=== PATIENT | female | born 1985 | race Asian ===

== ENCOUNTER → 2020-01-02 | Outpatient (CLI) | payer SELFPAY ==
[~2020-01-02] MED LIST: DOCU-109 PO; OXYC1TAB15 PO
== END | disposition home or self-care (01) ==
LOC: LAB 14:33
PROVIDERS: ATTEND Obstetrics & Gynecology
DX: Z20.828 Contact with and (suspected) exposure to other viral communicable diseases (principal)
CPT/HCPCS: U0003-CS